=== PATIENT | female | born 1975 | race Caucasian/White ===

== ENCOUNTER 2025-04-29 08:50 | Day surgery (SDC) | payer OTHER ==
[~2025-04-29] VITALS: Ht 160 cm; Wt 68.0 kg
[~2025-04-29 08:50] MED LIST: ESTRACE1 MG PO; IBLOOD GLUCOSE TEST STRIP 1 EA TEST VI PRN; LACTATED RINGER'S 1,000 ML IV SCH; LEVOTHYROXINE75 MC1 PO; LIDOCAINE HCL 1% 5 ML SDV INJ ONE; PROVERA2.5 MG PO; VITAMIN D250 MC1 PO
[2025-04-29 08:58] VITALS: BP 143/76
[2025-04-29] MEDS ORDERED: LIDOCAINE HCL 2% 5 ML SDV ONE (09:43)
[2025-04-29] MEDS ORDERED: fentaNYL citrate 100 MCG/2 ML VIAL ONE (10:25)
--- NOTE | 2025-04-29 10:48 | NUR ---
04/29/25 [id number] Darcie Montejo 1040-PATIENT ARRIVED TO PACU ON 3L NC RR EVEN. PATIENT REACTIVE TO VERBAL STIMULI OPENING EYES DENIES PAIN OR NAUSEA. ORIENTED TO PACU. IVF INFUSING. ABDOMEN SOFT. SR HR 70'S.
[2025-04-29 11:14] VITALS: BP 116/80
== END 2025-04-29 11:20 | disposition home or self-care (01) ==
LOC: DS 08:50
PROVIDERS: ATTEND Surgery
PROC: 0DJD8ZZ Inspection of Lower Intestinal Tract, Via Natural or Artificial Opening Endoscopic (ICD-10-PCS; principal; 2025-04-29 12:00)
DX: Z12.11 Encounter for screening for malignant neoplasm of colon (principal); K64.2 Third degree hemorrhoids; Z80.0 Family history of malignant neoplasm of digestive organs; Z87.891 Personal history of nicotine dependence; Z88.0 Allergy status to penicillin; Z88.1 Allergy status to other antibiotic agents
CPT/HCPCS: 00812; J2003; J2704; J3010; J7121